=== PATIENT | female | born 1965 | race Caucasian/White ===

== ENCOUNTER → 2017-02-02 | Outpatient (CLI) | payer BC ==
[2017-02-02] VITALS (12 sets, daily range): BP systolic 133–157; BP diastolic 80–100; PULSE 98–113
[~2017-02-02] VITALS: Ht 157.5 cm; Wt 56.4 kg
[~2017-02-02] MED LIST: LIPITOR 40MG TA40 MG PO; MULTI VITAMINS1 TAB PO; NORCO 325 MG-101 TAB PO; NORVASC 5MG5 MG/TAB PO; PREDNISONE 5MG5 MG PO; PROBIOTIC-MAJOR PO; ULTRAM 50MG TAB50 MG PO; XANAX 0.5MG0.5 MG PO
[2017-02-02 11:01] LABS: PROTHROMBIN TIME 11.9 SECONDS (9.7-12.8)
== END ==
LOC: COL.RAD 09:50
PROVIDERS: Internal Medicine Gastroenterology
DX: K76.0 Fatty (change of) liver, not elsewhere classified (principal); Z92.21 Personal history of antineoplastic chemotherapy; Z85.118 Personal history of other malignant neoplasm of bronchus and lung; Z92.3 Personal history of irradiation
CPT/HCPCS: 25757

== ENCOUNTER 2021-06-01 15:28 | Inpatient (IN) | payer SELFPAY ==
[2021-06-01] VITALS (64 sets, daily range): BP systolic 142–151; BP diastolic 78–79; PULSE 99–102; TEMP 98.5–98.8; O2SAT 91–97
[~2021-06-01] VITALS: Ht 157.5 cm; Wt 64.0 kg
--- NOTE | 2021-06-01 18:30 | NUR ---
To room 347 via EMS stretcher from [facility]. Records given to VIET Harper for review. Changing into gown.
--- NOTE | 2021-06-01 20:00 | NUR ---
Patient is resting in bed, complains of severe abdominal pain. Meredith came to check on her. Patient ablet to move herself to the restroom and come back. 2L O2, NC. Assessment intake completed.
[2021-06-01] MEDS ORDERED: TIROSINT50 MC1 (20:20)
[2021-06-01] MEDS ORDERED: CARAFATE 1GM1 G PO (20:23)
[2021-06-01] MEDS ORDERED: PRIL40 PO (20:24)
[2021-06-01] MEDS ORDERED: FOLIC ACID0.8 MG PO (20:25)
[2021-06-01] MEDS ORDERED: MAG-OX 400400 MG/TAB PO (20:26)
[2021-06-01] MEDS ORDERED: ROXICODONE 55 MG/TAB PO ×2 (20:28→20:29)
[2021-06-01 21:40] LABS: BASO # 0.1 K/mm3 (0.0-0.2); BASO % 0.4 % (0.0-2.0); EOS # 0.1 K/mm3 (0.0-0.7); EOS % 0.8 % (0.0-4.0); GRAN # 12.4 K/mm3 (1.4-6.5); GRAN % 81.7 % (42.2-75.2); HEMOGLOBIN 11.9 g/dl (12.5-16.0); LYMPH # 1.2 K/mm3 (1.2-3.4); LYMPH % 7.7 % (20.0-51.0); MEAN CELL VOLUME 96 fl (80.0-100.0); MEAN CORPUSCULAR HEMOGLOBIN 33 pg (27-31); MEAN CORPUSCULAR HGB CONC 35 g/dl (33.0-37.0); MEAN PLATELET VOLUME 9.8 fl (7.4-10.4); MONO # 1.3 K/mm3 (0.1-0.6); MONO % 8.8 % (1.7-9.3); PLATELET COUNT 383 K/mm3 (130-400); RED BLOOD COUNT 3.59 M/mm3 (4.10-5.30); REDCELL DISTRIBUTION WIDTH-CV 12.1 % (11.5-14.5)
[2021-06-01 21:41] LABS: HEMATOCRIT 34.4 % (37.0-47.0)
[2021-06-01 21:48] LABS: INR 1.4 (0.8-3.0)
[2021-06-01 21:58] LABS: CALCIUM 10.2 mg/dL (8.4-10.2); CREATININE, serum 1.35 mg/dL (0.57-1.11); POTASSIUM 3.4 mmol/L (3.5-4.5)
[2021-06-01 22:05] LABS: TROPONIN-I 0.01 ng/mL (0.00-0.033)
[2021-06-02] VITALS (1105 sets, daily range): BP systolic 110–141; BP diastolic 69–92; PULSE 89–104; TEMP 97.9–99; O2SAT 87–100
[2021-06-02 01:08] LABS: MUCOUS Present (NOT PRESENT); PH 5 (5-8); SQUAMOUS EPITHELIAL 0-2 /hpf (0-10); URINE APPEARANCE Clear (CLEAR/HAZY); URINE BACTERIA Rare /hpf (NONE SEEN); URINE BILIRUBIN Negative (NEGATIVE); URINE BLOOD Negative (NEGATIVE); URINE COLOR Yellow (YELLOW); URINE GLUCOSE Negative (NEGATIVE); URINE KETONE Negative (NEGATIVE); URINE LEUKOCYTE ESTERASE Negative (NEGATIVE); URINE NITRATE Negative (NEGATIVE); URINE PROTEIN(semi-quant) Negative (NEGATIVE); URINE RBC 0-2 /hpf (0-2); URINE UROBILINOGEN Negative (NEGATIVE)
[2021-06-02 02:38] LABS: COLLECTION METHOD CLEAN CATCH
[2021-06-02 04:52] LABS: ALBUMIN 2.3 gm/dL (3.5-5.0); BILIRUBIN,TOTAL 1.7 mg/dL (0.2-1.2); CALCIUM 9.2 mg/dL (8.4-10.2); CREATININE, serum 1.27 mg/dL (0.57-1.11); POTASSIUM 3.1 mmol/L (3.5-4.5); TOTAL PROTEIN 5.9 gm/dL (6.2-8.1)
[2021-06-02 04:54] LABS: BASO # 0.1 K/mm3 (0.0-0.2); BASO % 0.6 % (0.0-2.0); EOS # 0.2 K/mm3 (0.0-0.7); EOS % 1.6 % (0.0-4.0); GRAN # 8.7 K/mm3 (1.4-6.5); GRAN % 79.8 % (42.2-75.2); HEMATOCRIT 39.8 % (37.0-47.0); HEMOGLOBIN 13.8 g/dl (12.5-16.0); LYMPH # 0.9 K/mm3 (1.2-3.4); LYMPH % 8.2 % (20.0-51.0); MEAN CELL VOLUME 96 fl (80.0-100.0); MEAN CORPUSCULAR HEMOGLOBIN 33 pg (27-31); MEAN CORPUSCULAR HGB CONC 35 g/dl (33.0-37.0); MEAN PLATELET VOLUME 9.7 fl (7.4-10.4); MONO % 9.4 % (1.7-9.3); PLATELET COUNT 328 K/mm3 (130-400); RED BLOOD COUNT 4.15 M/mm3 (4.10-5.30); REDCELL DISTRIBUTION WIDTH-CV 12.3 % (11.5-14.5)
[2021-06-02 05:15] LABS: INR 1.3 (0.8-3.0); PROTHROMBIN TIME 14.2 SECONDS (9.7-12.8)
--- NOTE | 2021-06-02 07:00 | NUR ---
PT DOWN AT A HIDA SCAN.
--- NOTE | 2021-06-02 10:06 | NUR ---
hospitality workers met with patient to complete initial intake and assessment for discharge planning. Patient states that she lives with her spouse in [place] and has been independent with her activities of daily living. Patient plans to return to her home upon discharge. Patient states that she does not utilize and medical equipment or agency support for her care in the home. Patient's primary care provider is Dr Garg in [place] and that she can afford the current prescriptions and that she uses [facility] in [place]. Patient confirmed that she does not have health insurance. Worker provided information on our financial counselor and requested a visit, from our counselor, to complete a Financial Assistance Application. Patient states she does not have advance directives. Worker provided verbal and written information on advance directives and offered to assist with completion.
--- NOTE | 2021-06-02 11:22 | NUR ---
Vancomycin Initial Dosing Pharmacy Note Ordering provider: Erich Rodríguez MD Indication/duration: sepsis, 7 days LABS: SCr 1.27, CrCl~39, GFR 44 Recommendation: Will continue Vancomycin 1 gm IV q24h. Pharmacy will continue to closely monitor and check a Vancomycin trough prior to the 4th dose. Loading dose: 1.5 grams (1 gm at OSH + 500 mg at [facility] upon admission) Maintenance dose: 1 gram every 24 hours Trough goal: 15-20 ug/mL
--- NOTE | 2021-06-02 12:57 | NUR ---
First visit from the implementation services analyst. No needs right now.
--- NOTE | 2021-06-02 16:17 | NUR ---
PT DOWN TO END FOR ERCP.
--- NOTE | 2021-06-02 18:20 | NUR ---
Pt back from ERCP. Pt is lethargic but oriented. VSS. IVF and abx running. Will continue to montior.
[2021-06-03] VITALS (609 sets, daily range): BP systolic 113–140; BP diastolic 70–83; PULSE 91–104; TEMP 97.8–98.8; O2SAT 74–100
[2021-06-03 04:43] LABS: BASO # 0.1 K/mm3 (0.0-0.2); BASO % 0.3 % (0.0-2.0); EOS # 0.1 K/mm3 (0.0-0.7); EOS % 0.9 % (0.0-4.0); GRAN # 11.8 K/mm3 (1.4-6.5); GRAN % 81.8 % (42.2-75.2); LYMPH # 1.2 K/mm3 (1.2-3.4); MEAN CELL VOLUME 98 fl (80.0-100.0); MEAN CORPUSCULAR HGB CONC 34 g/dl (33.0-37.0); MEAN PLATELET VOLUME 9.6 fl (7.4-10.4); MONO # 1.2 K/mm3 (0.1-0.6); MONO % 8.4 % (1.7-9.3); PLATELET COUNT 394 K/mm3 (130-400); RED BLOOD COUNT 3.11 M/mm3 (4.10-5.30); REDCELL DISTRIBUTION WIDTH-CV 12.4 % (11.5-14.5)
[2021-06-03 04:49] LABS: HEMATOCRIT 30.4 % (37.0-47.0); HEMOGLOBIN 10.3 g/dl (12.5-16.0); MEAN CORPUSCULAR HEMOGLOBIN 33 pg (27-31)
[2021-06-03 04:50] LABS: INR 1.4 (0.8-3.0); PROTHROMBIN TIME 15.9 SECONDS (9.7-12.8)
[2021-06-03 05:18] LABS: ALBUMIN 2.1 gm/dL (3.5-5.0); BILIRUBIN,TOTAL 1.2 mg/dL (0.2-1.2); CALCIUM 8.5 mg/dL (8.4-10.2); CREATININE, serum 1.34 mg/dL (0.57-1.11); POTASSIUM 4.3 mmol/L (3.5-4.5); TOTAL PROTEIN 5.1 gm/dL (6.2-8.1)
--- NOTE | 2021-06-03 05:27 | NUR ---
ASSUMED CARE OF PATIENT AFTER RECEIVING BEDSIDE REPORT. PATIENT GIVEN PAIN MEDICATION PER MAR, REPORTED ADEQUATE PAIN CONTROL. PATIENT COMPLETED ADL'S INDEPENDENTLY. MICHELLE CATHETER DISCONTINUED PER JAIRO FRANCE. PATIENT TOLERATING ORAL INTAKE. PATIENT REPORTS FEELING MUCH BETTER. IMPROVEMENT IN ANASARCA NOTED. NO ACUTE EVENTS OVERNIGHT. BEDSIDE REPORT TO BE GIVEN TO ONCOMING SHIFT.
--- NOTE | 2021-06-03 07:00 | NUR ---
PT RESTING IN BED. VSS. WILL CONTINUE TO MONTIOR.
--- NOTE | 2021-06-03 13:51 | NUR ---
1330-REPORT CALLED TO TRINIDAD AGUAYO. ALL QUESTIONS ANSWERED. 1345- PT WHEELED UP TO ROOM 343 AND HELPED TO BED. PT WORKING WITH OT. TRINIDAD AGUAYO NOTIFIED OF PTS ARRIVAL.
--- NOTE | 2021-06-03 18:49 | NUR ---
PT LAYING SUPINE IN BED ON ROOM AIR. PT STATES THAT SHE IS STILL HAVING SOME PAIN IN HER BACK. " THAT PAIN PILL HELPED BUT I THINK THAT IT IS JUST THIS BED AND THE WAY THAT I WAS LAYING." ASSISTED PT TO REPOSITION. PT STATES SHE WOULD LIKE SOME WATER. ITEM WAS GOTTEN FOR PT. PT STATES NO OTHER NEEDS AT THIS TIME. CALL LIGHT IS WITHIN REACH.
[2021-06-04] VITALS (7 sets, daily range): BP systolic 123–137; BP diastolic 72–84; PULSE 91–108; TEMP 98.2–99.3
--- NOTE | 2021-06-04 00:36 | NUR ---
PATIENT ALERT AND ORIENTED. ASSESSMENT COMPLETED. MEDS GIVEN PER EMAR. ABD LAPS X4 CDI AND OPEN TO AIR, HEALING WELL. REMAINS ON 2 L O2 AT THIS TIME. MODERATE PAIN 7/10 AT SHIFT CHANGE TREATED WITH PRN SAULO PER ORDER. DENIES ANY FURTHER NEEDS. CALL LIGHT IN REACH.
[2021-06-04 06:25] LABS: BASO # 0.1 K/mm3 (0.0-0.2); BASO % 0.4 % (0.0-2.0); EOS # 0.4 K/mm3 (0.0-0.7); EOS % 3.3 % (0.0-4.0); GRAN # 9.2 K/mm3 (1.4-6.5); GRAN % 80.5 % (42.2-75.2); LYMPH # 0.8 K/mm3 (1.2-3.4); LYMPH % 7.3 % (20.0-51.0); MEAN CELL VOLUME 98 fl (80.0-100.0); MEAN CORPUSCULAR HEMOGLOBIN 33 pg (27-31); MEAN CORPUSCULAR HGB CONC 33 g/dl (33.0-37.0); MEAN PLATELET VOLUME 9.8 fl (7.4-10.4); MONO # 0.9 K/mm3 (0.1-0.6); MONO % 7.9 % (1.7-9.3); PLATELET COUNT 393 K/mm3 (130-400); RED BLOOD COUNT 3.06 M/mm3 (4.10-5.30); REDCELL DISTRIBUTION WIDTH-CV 12.5 % (11.5-14.5)
[2021-06-04 06:26] LABS: INR 1.4 (0.8-3.0); PROTHROMBIN TIME 15.6 SECONDS (9.7-12.8)
[2021-06-04 06:36] LABS: BILIRUBIN,TOTAL 1.1 mg/dL (0.2-1.2); CALCIUM 8.4 mg/dL (8.4-10.2); CREATININE, serum 1.29 mg/dL (0.57-1.11); POTASSIUM 3.2 mmol/L (3.5-4.5); TOTAL PROTEIN 5.4 gm/dL (6.2-8.1)
--- NOTE | 2021-06-04 09:34 | NUR ---
PT SBA IN ROOM. TAKING CLEARS, POTASSIUM PROTOCOL THIS AM FOR KCL 3.2.
--- NOTE | 2021-06-05 00:07 | NUR ---
PATIENT ALERT AND ORIENTED. PRN SAULO FOR GAS PAIN NEEDED, SEE EMAR. HS MEDS ADMINISTERED PER ORDERS. X5 ABD LAPS CDI AND OPEN TO AIR. CURRENTLY ON 0.5 L 02 VIA SC. PICC ROZ PATENT AND FLUSHES WITH GOOD BLOOD RETURN.
[2021-06-05 04:10] VITALS: BP 121/81; PULSE 90; TEMP 98.8
[2021-06-05 06:40] LABS: BASO # 0.1 K/mm3 (0.0-0.2); BASO % 0.6 % (0.0-2.0); EOS # 0.3 K/mm3 (0.0-0.7); EOS % 3.1 % (0.0-4.0); GRAN # 7.8 K/mm3 (1.4-6.5); GRAN % 76.6 % (42.2-75.2); HEMOGLOBIN 10.2 g/dl (12.5-16.0); LYMPH % 9.9 % (20.0-51.0); MEAN CELL VOLUME 97 fl (80.0-100.0); MEAN CORPUSCULAR HEMOGLOBIN 33 pg (27-31); MEAN CORPUSCULAR HGB CONC 34 g/dl (33.0-37.0); MEAN PLATELET VOLUME 9.7 fl (7.4-10.4); MONO % 9.3 % (1.7-9.3); PLATELET COUNT 398 K/mm3 (130-400); REDCELL DISTRIBUTION WIDTH-CV 12.1 % (11.5-14.5)
[2021-06-05 06:49] LABS: HEMATOCRIT 29.9 % (37.0-47.0)
[2021-06-05 06:55] LABS: ALBUMIN 2.2 gm/dL (3.5-5.0); BILIRUBIN,TOTAL 1.1 mg/dL (0.2-1.2); CALCIUM 8.6 mg/dL (8.4-10.2); CREATININE, serum 1.42 mg/dL (0.57-1.11); POTASSIUM 3.6 mmol/L (3.5-4.5); TOTAL PROTEIN 5.9 gm/dL (6.2-8.1)
[2021-06-05 07:13] VITALS: BP 136/79; PULSE 86; TEMP 98.6
--- NOTE | 2021-06-05 10:01 | NUR ---
PT RESTING IN BED. HOSPITALIST ROUNDED AND DETERMINED THAT PT IN READY TO GO HOME.
[2021-06-05 12:23] VITALS: BP 142/51; PULSE 94; TEMP 99
--- NOTE | 2021-06-05 12:29 | NUR ---
Laboratory Courier attended clinical rounds with the team. Patient may discharge later today or tomorrow. SW checked in with patient who confirmed her plan is to still return home at time of discharge. Patient is interested in meeting with Suyapa, Financial Counselor. KAYLI contacted Suyapa who will see patient today.
[2021-06-05 13:12] LABS: AMYLASE 53 U/L (25-125); LIPASE 90 U/L (8-78)
[2021-06-05 15:13] VITALS: BP 129/73; PULSE 90; TEMP 98.5
[2021-06-05 20:47] VITALS: BP 133/77; PULSE 92; TEMP 98.6
--- NOTE | 2021-06-06 00:18 | NUR ---
PATIENT ALERT AND ORIENTED. X5 ABD LAPS CDI. HS MEDS PER EMAR. C/O EPIGASTRIC PAIN AND PRN SAULO GIVEN. PATIENTS FEET ARE EDEMATOUS, ELEVATED WITH PILLOWS. TOLERATING HER LOW FAT DIET AND REQUESTS TEA THROUGHOUT NIGHT. REMAINS ON 1 L 02 VIA NC. PICC PATENT WITH GOOD BLOOD RETURN.
[2021-06-06 00:34] VITALS: BP 124/80; PULSE 94; TEMP 98.5
[2021-06-06 03:59] VITALS: BP 138/75; PULSE 92; TEMP 97.9
[2021-06-06 05:04] VITALS: BP 134/75; PULSE 88; TEMP 98.2
[2021-06-06 06:26] LABS: BASO % 0.4 % (0.0-2.0); EOS # 0.3 K/mm3 (0.0-0.7); EOS % 2.9 % (0.0-4.0); GRAN # 7.4 K/mm3 (1.4-6.5); GRAN % 78.2 % (42.2-75.2); LYMPH # 0.9 K/mm3 (1.2-3.4); LYMPH % 9.1 % (20.0-51.0); MEAN CELL VOLUME 96 fl (80.0-100.0); MEAN CORPUSCULAR HEMOGLOBIN 32 pg (27-31); MEAN CORPUSCULAR HGB CONC 34 g/dl (33.0-37.0); MEAN PLATELET VOLUME 9.4 fl (7.4-10.4); MONO # 0.8 K/mm3 (0.1-0.6); MONO % 8.9 % (1.7-9.3); PLATELET COUNT 367 K/mm3 (130-400); REDCELL DISTRIBUTION WIDTH-CV 12.1 % (11.5-14.5)
[2021-06-06 06:29] LABS: HEMATOCRIT 29.8 % (37.0-47.0)
[2021-06-06 06:37] LABS: CALCIUM 8.9 mg/dL (8.4-10.2); CREATININE, serum 1.49 mg/dL (0.57-1.11); POTASSIUM 3.5 mmol/L (3.5-4.5)
[2021-06-06 08:00] VITALS: BP 140/86; PULSE 86; TEMP 99
--- NOTE | 2021-06-06 09:51 | NUR ---
Received report from plant operator/shift supervisor. Patient alert and oriented x4. VSS. Assessment performed. Patient denies any pain. Reports concern of umbilical hernia between lap sites. Lap sites x5 CDI. PICC line with good blood return. AM meds administered. Patient resting in bed with call light near.
[2021-06-06] MEDS ORDERED: LEVAQUIN 750MG750 M1 PO (11:34)
[2021-06-06] MEDS ORDERED: AMOXICILLIN 8751 TAB PO (11:35)
[2021-06-06] MEDS ORDERED: OXYGEN NASAL.CANN (11:37)
[2021-06-06 12:00] VITALS: BP 142/83; PULSE 93; TEMP 98.8
--- NOTE | 2021-06-06 14:03 | NUR ---
Museum Technician notified that patient will need set up with home oxygen. KAYLI met with patient to discuss DME options. 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 Patient then chose to utilize [facility]. KAYLI advised that [facility] has a financial assistance program she can apply for and patient is interested in this as she is self pay. KAYLI contacted Taiwo at [facility] and faxed referral/order. Oxygen supplies to be delivered this afternoon to patient and Taiwo advised he would bring a copy of the [facility] assistance application. Discharge Plan: Home
[2021-06-06 15:04] VITALS: BP 143/82; PULSE 97; TEMP 99
--- NOTE | 2021-06-06 18:07 | NUR ---
Patient discharge instructions provided, patient education given. Patient denied any questions or concerns. Patient waiting on oxygen delivery.
--- NOTE | 2021-06-06 18:34 | NUR ---
Oxygen delivery has arrived. Patient was given education on home O2. Patient denies any questions or concerns. Patient was escorted out via wheelchair.
== END 2021-06-06 18:36 | disposition home or self-care (01) | DRG 871 ==
LOC: SURG 15:28 → ICU 19:00 → SURG 06-03 13:59
PROVIDERS: Internal Medicine; Internal Medicine Gastroenterology; Nurse Practitioner Family; Physician Assistant; ADMIT Internal Medicine
PROC: 0F798DZ Dilation of Common Bile Duct with Intraluminal Device, Via Natural or Artificial Opening Endoscopic (ICD-10-PCS; 2021-06-02)
PROC: 02HV33Z Insertion of Infusion Device into Superior Vena Cava, Percutaneous Approach (ICD-10-PCS; principal; 2021-06-02 16:30)
DX: A41.9 Sepsis, unspecified organism (principal); J96.01 Acute respiratory failure with hypoxia; J18.9 Pneumonia, unspecified organism; R18.8 Other ascites; N17.9 Acute kidney failure, unspecified; I10 Essential (primary) hypertension; E78.5 Hyperlipidemia, unspecified; E03.9 Hypothyroidism, unspecified; D64.9 Anemia, unspecified; F41.9 Anxiety disorder, unspecified; F32.A Depression, unspecified; K76.0 Fatty (change of) liver, not elsewhere classified; K83.8 Other specified diseases of biliary tract; E87.6 Hypokalemia; Z85.118 Personal history of other malignant neoplasm of bronchus and lung; Z87.891 Personal history of nicotine dependence
CPT/HCPCS: 99223-AI; 99233-AI; 99239; A9284; A9537; C1751; C1769; C2625; J1170; J1940; J2543; J2704; J3370; J3480; J7030; J7050

== ENCOUNTER 2021-07-25 12:45 | Day surgery (SDC) | payer SELFPAY ==
[~2021-07-25] VITALS: Ht 157.5 cm; Wt 44.0 kg
[~2021-07-25 12:45] MED LIST changes: +AMOXICILLIN 8751 TAB PO; +CARAFATE 1GM1 G PO; +FOLIC ACID0.8 MG PO; +LEVAQUIN 750MG750 M1 PO; +MAG-OX 400400 MG/TAB PO; +OXYGEN NASAL.CANN; +PRIL40 PO; +ROXICODONE 55 MG/TAB PO; +TIROSINT50 MC1
[2021-07-25 13:36] VITALS: BP 154/91; PULSE 122; TEMP 97.9
[2021-07-25 15:20] VITALS: BP 132/89; PULSE 99
--- NOTE | 2021-07-25 15:20 | NUR ---
The patient arrived back to [facility] from the endoscopy suite at this time. The patient is continuing to report the same back pain that she was admitted with. Post procedure vital signs were started at this time. The patient agrees to try some grape juice. The patient has to stay for one hour from the completion of the procedure. Call light is within reach. Warm blankets were placed behind her back to help with the pain. Denies any further needs at this time.
[2021-07-25 15:32] VITALS: BP 134/88; PULSE 109; TEMP 97.5
--- NOTE | 2021-07-25 15:35 | NUR ---
The patient is now lying flat on her back and has tried more of her juice and appeared to tolerate it well. Vital signs appear stable. Denies any further needs.
[2021-07-25 15:50] VITALS: BP 137/85; PULSE 101
--- NOTE | 2021-07-25 15:50 | NUR ---
The patient was has spoke with Dr. Zapien regarding the findings of the procedure. She continues to sip on the juice and appears to be tolerating it well.
[2021-07-25 16:05] VITALS: BP 136/74; PULSE 100
--- NOTE | 2021-07-25 16:05 | NUR ---
Discharge instructions were reviewed with the patient at this time. She verbalized understanding and has no questions for the nurse at this time. The patient's IV to her right hand was removed and a pressure dressing was applied to the site. The patient was instructed to get dressed so she can be escorted out.
--- NOTE | 2021-07-25 16:15 | NUR ---
The patient was escorted out via wheelchair to a private vehicle by OLIVIER Langford. The patient's belongings and dishcarge paperwork were sent with her. The patient's sister is present to drive her home.
== END 2021-07-25 16:15 | disposition home or self-care (01) ==
LOC: SDCO 12:45
DX: K83.8 Other specified diseases of biliary tract (principal); K31.89 Other diseases of stomach and duodenum; Z87.891 Personal history of nicotine dependence
CPT/HCPCS: C1769; J2704; J3010; J7120; Q9967